=== PATIENT | female | born 1960 | race Caucasian/White ===

== ENCOUNTER 2016-12-15 16:13 | Emergency (ER) | payer OTHER ==
[2016-12-15] MEDS ORDERED: CLEOCIN150 MG PO (18:01)
[2016-12-15] MEDS ORDERED: PERCOCET 5/325M1 TAB PO (18:07)
[2016-12-15 18:13] VITALS: BP 149/86
== END 2016-12-15 18:15 | disposition home or self-care (01) | DRG 746 ==
LOC: ED 16:13
PROC: 0U9MXZZ Drainage of Vulva, External Approach (ICD-10-PCS; principal; 2016-12-15)
PROC: 0H9HXZZ Drainage of Right Upper Leg Skin, External Approach (ICD-10-PCS; 2016-12-15)
DX: N76.4 Abscess of vulva (principal); L02.415 Cutaneous abscess of right lower limb

== ENCOUNTER 2016-12-18 07:03 | Emergency (ER) | payer OTHER ==
[~2016-12-18] VITALS: Ht 157.5 cm; Wt 77.3 kg
[~2016-12-18 07:03] MED LIST: CLEOCIN150 MG PO; PERCOCET 5/325M1 TAB PO
[2016-12-18 07:53] VITALS: BP 121/75
== END 2016-12-18 07:57 | disposition home or self-care (01) | DRG 747 ==
LOC: ED 07:03
PROC: 0U9MXZZ Drainage of Vulva, External Approach (ICD-10-PCS; principal; 2016-12-18)
DX: N76.4 Abscess of vulva (principal)

== ENCOUNTER 2016-12-20 13:53 | Emergency (ER) | payer OTHER ==
[~2016-12-20] VITALS: Ht 157.5 cm; Wt 78.0 kg
[2016-12-20] MEDS ORDERED: PERCOCET 5/325M1 TAB PO (14:49)
[2016-12-20] MEDS ORDERED: CLINDAMYCIN300 M1 PO (14:49)
[2016-12-20 14:59] VITALS: BP 154/77
== END 2016-12-20 15:04 | disposition home or self-care (01) | DRG 747 ==
LOC: ED 13:53
PROC: 0U9MXZZ Drainage of Vulva, External Approach (ICD-10-PCS; principal; 2016-12-20)
DX: N76.4 Abscess of vulva (principal)